=== PATIENT | male | born 1970 | race African-American/Black ===

== ENCOUNTER 2017-11-11 23:26 | Emergency (ER) | payer OTHER ==
[~2017-11-11] VITALS: Ht 190.5 cm; Wt 83.9 kg
--- NOTE | ~2017-11-11 | EKG ---
[place] [address] [facility] [place] [address] [address] ELECTROCARDIOGRAM REPORT Name: LINH CROWLEY Room #: NATHALY Sorensen#: [id number] Admission: 11/11/17 Attend Phys: Discharge: 11/12/17 Date of : 68 Report #: [id number] THIS REPORT FOR: //name// [facility] ED Test Date: 2017-11-11 Test Time: 23:36:26 Pat Name: LINH CROWLEY Department: Room: Gender: Secret Code Expert: LISA : 1970 Requested By: Kendy Dickerson Order Number: [id number] MD: Shamir Toussaint Measurements Intervals [place] Rate: 83 P: 75 TN: 160 QRS: -55 QRSD: 90 T: 34 QT: 331 QTc: 389 Interpretive Statements Sinus rhythm Left anterior fascicular block No previous ECG available for comparison Electronically Signed On 11-12-2017 8:40:25 [employer]SEM[employer]IM[employer] by Shamir Toussaint [email or web address] <ELECTRONICALLY SIGNED> By: Shamir Toussaint MD, [facility] 11/12/17 [id number] Shamir Toussaint MD, FACC /EPI
[2017-11-12] MEDS ORDERED: ZOFRAN ODT4 MG PO (00:25)
[2017-11-12] MEDS ORDERED: TAMIFLU75 MG PO (00:25)
== END 2017-11-12 00:34 | disposition home or self-care (01) ==
LOC: ER 23:26
DX: J11.1 Influenza due to unidentified influenza virus with other respiratory manifestations (principal)